=== PATIENT | male | born 1980 | race Caucasian/White ===

== ENCOUNTER 2017-03-16 18:44 | Emergency (ER) | payer BC ==
[~2017-03-16] VITALS: Ht 180.3 cm; Wt 162.3 kg
[~2017-03-16 18:44] MED LIST: LANSOPRAZOLE30 MG PO; NEXIUM20 MG PO; NEXIUM40 MG PO; NOHOMEMEDS; ULTRAM50 MG PO; ZANTAC150 MG PO
[2017-03-16 19:29] LABS: ADD MIUA? YES; BILIRUBIN NEGATIVE; BLOOD NEGATIVE; COLOR YELLOW ((YELLOW)); GLUCOSE (STRIP) NEGATIVE; KETONES NEGATIVE; LEUKOCYTES NEGATIVE; NITRITE NEGATIVE; PROTEIN (STRIP) NEGATIVE; SPECIFIC GRAVITY 1.026 (1.000-1.030); UROBILINOGEN 0.2 MG/DL (0.2-1.0)
[2017-03-16 19:31] LABS: HEMATOCRIT 44.6 % (38.0-50.0); MCH 30.3 PG (29.0-34.0); MCHC 34.1 G/DL (30.0-36.0); MEAN PLAT.VOLUME 9.4 uM^3 (9.0-12.4); PLATELET COUNT 369 K/uL (156-360); RBC DIS.WIDTH-CV 12.8 % (11.8-14.6); RBC DIS.WIDTH-SD 41.5 % (39-53); RED BLOOD COUNT 5.01 M/uL (4.00-5.50); WHITE BLOOD COUNT 12.9 K/uL (4.1-10.2)
[2017-03-16 19:37] LABS: BACTERIA RARE /HPF; EPITHELIAL CELLS NONE SEEN /HPF; GRANULAR CASTS 0-5 /LPF; MUCUS TRACE /LPF; RED BLOOD CELLS 0-5 /HPF (0-5); UCUL ADDED? NO; WHITE BLOOD CELLS 0-5 /HPF (0-5)
[2017-03-16 19:40] LABS: CHLORIDE 105 mEq/L (99-109); SODIUM 139 mEq/L (136-147)
[2017-03-16 19:42] LABS: GLUCOSE 109 mg/dL (70-99)
[2017-03-16 19:43] LABS: ANION GAP 11 MEQ/L (2-14)
[2017-03-16 19:44] LABS: TOTAL BILIRUBIN 0.6 mg/dL (0.0-1.0)
[2017-03-16 19:46] LABS: ALKALINE PHOSPHATASE 54 IU/L (3-129); GFR ESTIMATE (CALCULATED) > 59 mL/min/
[2017-03-16 19:47] LABS: UREA NITROGEN (BUN) 12 mg/dL (9-23)
[2017-03-16] MEDS ORDERED: METFORMIN HCL500 MG PO (21:23)
[2017-03-16] MEDS ORDERED: LISINOPRIL10 MG PO (21:24)
[2017-03-16] MEDS ORDERED: JANUVIA100 MG PO (21:24)
[2017-03-16] MEDS ORDERED: OMEPRAZOLE40 M1 PO (21:25)
[2017-03-17 00:24] VITALS: BP 117/79
== END 2017-03-17 00:38 | disposition home or self-care (01) ==
LOC: EME 18:44
DX: R10.30 Lower abdominal pain, unspecified (principal); K21.9 Gastro-esophageal reflux disease without esophagitis; Z87.891 Personal history of nicotine dependence
CPT/HCPCS: 74176; 80053; 81003; 85027; 99281; 99284